=== PATIENT | male | born 1965 | race Caucasian/White ===

== ENCOUNTER 2018-07-20 13:26 | Emergency (ER) | payer MEDICAID ==
[~2018-07-20] VITALS: Ht 180.3 cm; Wt 99.8 kg
[~2018-07-20 13:26] MED LIST: AMIT25TA9 PO; CETI1TAB36 PO; LAMO200T34 PO; MELO1TAB56 PO; MONT10TA34 OR; MORP-109 PO; OMEP20TA PO; OXCA600T3 PO; PERCOT PO; RANI150C11 PO; RIVA20TA PO; SERT-135 PO; TEMA30CA PO; TIZA4TAB9 PO
[2018-07-20 14:38] LABS: Basophils # (auto) 0.1 uL; Basophils % (auto) 1.1 % (0.0-2.0); Eosinophils # (auto) 0.6 uL; Eosinophils % (auto) 9.5 % (0.0-7.0); Hematocrit 34.5 % (41.0-53.0); Hemoglobin 11.6 g/dL (13.5-17.5); Lymphocytes % (auto) 30.7 % (10.0-50.0); Mean Corpuscular Hemoglobin 30.3 pg (28.0-32.0); Mean Corpuscular Hgb Conc. 33.7 g/dL (32.0-36.0); Monocytes # (auto) 0.5 uL; Monocytes % (auto) 7.5 % (0.0-12.0); Neutrophils # (auto) 3.4 uL; Neutrophils % (auto) 51.2 % (37.0-80.0); Nucleated Red Blood Cells % 0.1 %; Platelet Count (auto) 732 10^3/uL (140-450); Red Blood Cells 3.84 10^6/uL (4.5-5.90); Red Cell Distribution Width 14.6 % (11.8-14.3); White Blood Cell 6.6 10^3/uL (4.4-10.8)
[2018-07-20 14:53] LABS: Alanine Aminotransferase 29 U/L (16-61); Albumin 3.7 g/dL (3.4-5.0); Alkaline Phosphatase 54 U/L (45-117); Anion Gap 5 (5-15); Aspartate Aminotransferase 15 U/L (15-37); BUN/Creatinine Ratio 15.8; Bilirubin, Total 0.3 mg/dL (0.2-1.0); Blood Urea Nitrogen 21 mg/dL (7-18); Calcium 9.3 mg/dL (8.5-10.1); Carbon Dioxide 29 mmol/L (21-32); Chloride 104 mmol/L (98-107); GFR African American 72 mL/min; GFR Non-African American 60 mL/min; Glucose 92 mg/dL (74-106); Potassium 4.5 mmol/L (3.5-5.1); Sodium 138 mmol/L (136-145); Total Protein 7.6 g/dL (6.4-8.2)
[2018-07-20 15:31] VITALS: BP 133/85
== END 2018-07-20 15:36 | disposition home or self-care (01) ==
LOC: ER 13:28
DX: L03.116 Cellulitis of left lower limb (principal); L03.115 Cellulitis of right lower limb; E78.5 Hyperlipidemia, unspecified; M10.9 Gout, unspecified; I11.0 Hypertensive heart disease with heart failure; I50.9 Heart failure, unspecified; Z88.8 Allergy status to other drugs, medicaments and biological substances; Z88.2 Allergy status to sulfonamides; Z79.899 Other long term (current) drug therapy
CPT/HCPCS: 36415; 80053; 83880; 84484; 85025; 93970

== ENCOUNTER 2019-03-27 14:36 | Emergency (ER) | payer MEDICAID ==
[~2019-03-27] VITALS: Ht 177.8 cm; Wt 99.8 kg
[~2019-03-27 14:36] MED LIST changes: +ATOR20TA PO; +LEVO500T21 PO
[2019-03-27 15:51] LABS: Albumin 3.9 g/dL (3.4-5.0); Calcium 8.8 mg/dL (8.5-10.1); Potassium 4.4 mmol/L (3.5-5.1)
[2019-03-27 15:56] LABS: BUN/Creatinine Ratio 19.5; Bilirubin, Total 0.3 mg/dL (0.2-1.0)
[2019-03-27 16:09] VITALS: BP 118/67
[2019-03-27 16:26] LABS: Basophils # (auto) 0.1 uL; Basophils % (auto) 1.3 % (0.0-2.0); Eosinophils # (auto) 0.6 uL; Eosinophils % (auto) 7.4 % (0.0-7.0); Hematocrit 36.6 % (41.0-53.0); Hemoglobin 12.2 g/dL (13.5-17.5); Lymphocytes # (auto) 3.3 uL; Lymphocytes % (auto) 40.7 % (10.0-50.0); Mean Corpuscular Hemoglobin 30.5 pg (28.0-32.0); Mean Corpuscular Hgb Conc. 33.4 g/dL (32.0-36.0); Mean Corpuscular Volume 91.4 fL (80.0-100.0); Monocytes # (auto) 0.7 uL; Monocytes % (auto) 9.1 % (0.0-12.0); Neutrophils # (auto) 3.4 uL; Neutrophils % (auto) 41.5 % (37.0-80.0); Nucleated Red Blood Cells % 0.1 %; Platelet Count (auto) 674 10^3/uL (140-450); Red Cell Distribution Width 15.2 % (11.8-14.3); White Blood Cell 8.2 10^3/uL (4.4-10.8)
== END 2019-03-27 17:44 | disposition home or self-care (01) ==
LOC: ER 14:40
DX: I83.891 Varicose veins of right lower extremity with other complications (principal); J45.909 Unspecified asthma, uncomplicated; K21.9 Gastro-esophageal reflux disease without esophagitis; M10.9 Gout, unspecified; E78.5 Hyperlipidemia, unspecified; I13.0 Hypertensive heart and chronic kidney disease with heart failure and stage 1 through stage 4 chronic kidney disease, or unspecified chronic kidney disease; N18.9 Chronic kidney disease, unspecified; I50.9 Heart failure, unspecified; Z88.2 Allergy status to sulfonamides; Z79.899 Other long term (current) drug therapy; Z88.8 Allergy status to other drugs, medicaments and biological substances
CPT/HCPCS: 36415; 80053; 85025

== ENCOUNTER 2019-04-28 14:34 | Inpatient (IN) | payer MEDICAID ==
[~2019-04-28] VITALS: Ht 182.9 cm; Wt 105.9 kg
[2019-04-28 16:43] LABS: Basophils # (auto) 0.1 uL; Lymphocytes # (auto) 2.8 uL; Monocytes # (auto) 1.1 uL; Nucleated Red Blood Cells % 0.1 %; Red Cell Distribution Width 14.1 % (11.8-14.3)
[2019-04-28 16:46] LABS: Eosinophils # (auto) 0.6 uL; Eosinophils % (auto) 5.4 % (0.0-7.0); Hematocrit 32.9 % (41.0-53.0); Hemoglobin 10.9 g/dL (13.5-17.5); Lymphocytes % (auto) 26.2 % (10.0-50.0); Mean Corpuscular Hemoglobin 30.4 pg (28.0-32.0); Mean Corpuscular Hgb Conc. 33.2 g/dL (32.0-36.0); Mean Corpuscular Volume 91.7 fL (80.0-100.0); Monocytes % (auto) 10.7 % (0.0-12.0); Neutrophils % (auto) 56.7 % (37.0-80.0); Red Blood Cells 3.58 10^6/uL (4.5-5.90); White Blood Cell 10.5 10^3/uL (4.4-10.8)
[2019-04-28 16:54] LABS: Urine Bacteria NONE SEEN /hpf (None Seen); Urine Blood Negative /uL (Negative); Urine Mucus FEW (None Seen); Urine Specific Gravity 1.021 (1.001-1.035); Urine WBC 1 /hpf (0 - 3)
[2019-04-28 17:20] LABS: Albumin 3.7 g/dL (3.4-5.0); BUN/Creatinine Ratio 18.7; Calcium 9.5 mg/dL (8.5-10.1); Potassium 4.2 mmol/L (3.5-5.1)
[2019-04-28 17:22] LABS: Bilirubin, Total 0.3 mg/dL (0.2-1.0); Total Protein 7.8 g/dL (6.4-8.2)
[2019-04-28] MEDS ORDERED: SODIUM CHLORIDE 0.9% 1,000 ML IVB ONE (17:35)
[2019-04-28] MEDS ORDERED: cefTRIAXone 1GM/50ML D5W 50 ML IV ONE (17:45)
[2019-04-28 18:57] LABS: INR 1.05 (0.9-1.15); Partial Thromboplastin Time 33.3 sec (23.64-32.05)
[2019-04-28 19:10] LABS: Platelet Count (auto) 703 10^3/uL (140-450)
[2019-04-28] MEDS ORDERED: TETANUS-DIPTH-ACEL PERTUSSIS 0.5ML SYRG IM ONE (21:00)
[2019-04-28] MEDS ORDERED: ONDANSETRON HCL 4 MG/2 ML VIAL IV ONE (23:00)
[2019-04-28] MEDS ORDERED: DOCUSATE SOD 100 MG CAP PO PRN (23:00)
[2019-04-28] MEDS ORDERED: ONDANSETRON HCL 4 MG/2 ML VIAL IV PRN (23:00)
[2019-04-28] MEDS ORDERED: MORPHINE SULF INJ 2 MG/ML SYRINGE 1ML IV PRN (23:00)
[2019-04-28] MEDS ORDERED: MECLIZINE HCL 25 MG TAB PO PRN (23:00)
[2019-04-28] MEDS ORDERED: ACETAMINOPHEN 500 MG TAB PO PRN (23:00)
[2019-04-28] MEDS ORDERED: ALBUTEROL SULF 2.5 MG/0.5ML(0.5%) NEB SOLN NEB PRN (23:00)
[2019-04-28] MEDS ORDERED: HYDROcodone-ACET 5/325MG TAB PO PRN (23:00)
[2019-04-28] MEDS ORDERED: LORazepam 2MG/ML-1ML VIAL IV PRN (23:00)
[2019-04-28] MEDS ORDERED: TEMAZEPAM 15 MG CAP PO PRN (23:00)
[2019-04-28] MEDS ORDERED: AMITRIPTYLINE HCL 10 MG TAB PO ONE (23:00)
[2019-04-28] MEDS ORDERED: MORPHINE SULF INJ 2 MG/ML SYRINGE 1ML IV ONE (23:00)
[2019-04-28 23:13] VITALS: BP 123/68
--- NOTE | 2019-04-29 00:25 | NUR ---
MS admit from [facility] admitted to tele/MS @ 0025. Patient oriented to Alonso Rodriguez, primary RN, unit, room, bed, and unit policies regarding patient care and visiting hours. Patient weighed by bedscale and encouraged to call if they need something. All questions and concerns addressed, patient verbalized understanding.
[2019-04-29] MEDS ORDERED: AMITRIPTYLINE HCL 25 MG TAB PO ONE (00:30)
[2019-04-29 01:00] VITALS: BP 123/69
[2019-04-29] MEDS ORDERED: AMITRIPTYLINE HCL 25 MG TAB ONE (01:26)
[2019-04-29 05:00] VITALS: BP 123/67
[2019-04-29] MEDS ORDERED: FUROSEMIDE 20 MG TAB PO SCH (06:00)
[2019-04-29 06:05] LABS: White Blood Cell 8.4 10^3/uL (4.4-10.8)
[2019-04-29 06:08] LABS: Hematocrit 31.4 % (41.0-53.0); Hemoglobin 10.2 g/dL (13.5-17.5); Mean Corpuscular Hemoglobin 29.5 pg (28.0-32.0); Mean Corpuscular Hgb Conc. 32.5 g/dL (32.0-36.0); Red Blood Cells 3.45 10^6/uL (4.5-5.90); Red Cell Distribution Width 13.9 % (11.8-14.3)
[2019-04-29] MEDS: CLINDAMYCIN 600MG IV 50 ML IV SCH ×2 (06:11→14:00)
[2019-04-29 06:18] LABS: Anion Gap 10 (5-15); Blood Urea Nitrogen 18 mg/dL (7-18); Calcium 8.4 mg/dL (8.5-10.1); Carbon Dioxide 23 mmol/L (21-32); Chloride 109 mmol/L (98-107); GFR African American 94 mL/min; GFR Non-African American 77 mL/min; Glucose 94 mg/dL (74-106); Potassium 3.8 mmol/L (3.5-5.1); Sodium 142 mmol/L (136-145)
[2019-04-29 06:57] LABS: Basophils % (manual) 0 (0.0-2.0); Blast Cells 0; Metamyelocytes % 0; Myelocytes % 0; Promyelocytes % 0; Reactive Lymphocytes 0
[2019-04-29] MEDS ORDERED: PANTOPRAZOLE 40 MG TAB PO SCH (07:00)
--- NOTE | 2019-04-29 07:19 | NUR ---
CLOSING NOTE Care has been endorsed to Ina MINER.
--- NOTE | 2019-04-29 08:08 | NUR ---
Respiratory note: PATIENT IN NO RESPIRATORY DISTRESS. SPO2 95%, HR 75, RR 16, BS CLEAR T/O. PT INFORMED TO PUSH CALL BUTTON IF SOB, WOB INCREASED OR WHEEZING OCCURS. PRN TX NOT INDICATED AT THIS TIME.
[2019-04-29 08:30] VITALS: BP 121/74
[2019-04-29] MEDS ORDERED: lamoTRIgine 100 MG TAB PO SCH (10:00)
[2019-04-29] MEDS ORDERED: PROPRANOLOL HCL 20 MG TAB PO SCH (10:00)
[2019-04-29] MEDS ORDERED: amLODIPine BESYLATE 5 MG TAB PO SCH (10:00)
[2019-04-29] MEDS ORDERED: SERTRALINE HCL 50 MG TAB PO SCH (10:00)
[2019-04-29 13:00] VITALS: BP 118/72
[2019-04-29] MEDS ORDERED: CLIN1CAP4 PO (13:11)
[2019-04-29] MEDS ORDERED: LEVO500T21 PO (13:11)
[2019-04-29 13:23] LABS: Band Neutrophils % (manual) 3; Eosinophils % (manual) 6 (0-7); Lymphocytes % (manual) 32 (10.0-50.0); Monocytes % (manual) 14 (0-12)
[2019-04-29 13:26] LABS: Platelet Count (auto) 707 10^3/uL (140-450)
--- NOTE | 2019-04-29 14:00 | NUR ---
PAGED SOCIAL SERVICE
--- NOTE | 2019-04-29 14:15 | NUR ---
RE: CALL RECEIVED CALL BACK FROM SOCIAL SERVICE INFORMED OF THE HOME HEALTH PER MD. SOCIAL SERVICE CHRIS STATED WANTED TO CONFIRM PATIENTS ADDRESS. WILL CALL BACK WITH INFORMATION.
--- NOTE | 2019-04-29 14:20 | NUR ---
RE: HOME HEALTH PATIENT STATED " WILL PLAY IT BY EAR" THUS REFUSED THE HOME HEALTH. INFORMED THE SOCIAL SERVICE.
[2019-04-29 14:33] VITALS: BP 118/72
--- NOTE | 2019-04-29 15:50 | NUR ---
Discharge instructions given as ordered. Encourage to follow up with PMD as instructed. All questions and concerns addressed. Patient verbalized understanding. IV removed with catheter intact, pressure dressing applied. Patient taken to vehicle via wheelchair with all personal belongings, accompanied by staff and family member. No distress noted at time of departure.
[2019-04-29] MEDS ORDERED: cefTRIAXone 1GM/50ML D5W 50 ML IV SCH (18:00)
[2019-04-29] MEDS ORDERED: AMITRIPTYLINE HCL 25 MG TAB PO SCH (22:00)
[2019-04-29] MEDS ORDERED: MONTELUKAST SODIUM 10 MG TAB PO SCH (22:00)
--- NOTE | 2019-04-30 10:45 | NUR ---
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
== END 2019-04-29 15:56 | disposition home health service (06) | DRG 383 ==
LOC: ER 14:34 → OVERFLOW 14:35 → WEST WING 04-29 00:25
PROVIDERS: ADMIT Nurse Practitioner Family; ATTEND Nurse Practitioner Family
DX: L03.116 Cellulitis of left lower limb (principal); D64.9 Anemia, unspecified; E78.5 Hyperlipidemia, unspecified; K21.9 Gastro-esophageal reflux disease without esophagitis; M10.9 Gout, unspecified; J44.9 Chronic obstructive pulmonary disease, unspecified; F31.9 Bipolar disorder, unspecified; G40.909 Epilepsy, unspecified, not intractable, without status epilepticus; I12.9 Hypertensive chronic kidney disease with stage 1 through stage 4 chronic kidney disease, or unspecified chronic kidney disease; N18.9 Chronic kidney disease, unspecified; Z79.01 Long term (current) use of anticoagulants; Z79.899 Other long term (current) drug therapy; Z88.2 Allergy status to sulfonamides; Z88.8 Allergy status to other drugs, medicaments and biological substances; Z82.49 Family history of ischemic heart disease and other diseases of the circulatory system; Z86.718 Personal history of other venous thrombosis and embolism; Z23 Encounter for immunization
CPT/HCPCS: 36415; 80048; 80053; 81001; 83605; 83735; 85007; 85025; 85027; 85610; 85730; 87040; 90471; 90715; 93971; 94761; 96365; 96366; 96375; G0378; J0696; J2405; J3490